=== PATIENT | male | born 1950 | race Caucasian/White ===

== ENCOUNTER 2019-03-13 06:28 | Day surgery (SDC) | payer MEDICARE ==
[~2019-03-13] VITALS: Ht 174 cm; Wt 86.2 kg
[~2019-03-13 06:28] MED LIST: ASCO500T8 PO; ASPI-515 PO; ASPI-650 PO; CALC1CAP8 PO; CARB15DR3 EACHEYE; CHOL100012 PO; EPIN1AMP IM; GABA300C10 PO; MULT-658 PO; NAPR220C2 PO; OXYC10TA72 PO; OXYC5CAP2 PO; PROP10DR2 EACHEYE; SIMV20TA3 PO; TAMS-11 PO; VITAMIN E PO
[2019-03-13] MEDS ORDERED: LACTATED RINGERS 1,000 ML IV SCH (06:56)
[2019-03-13] MEDS ORDERED: LIDOCAINE-MPF 1%, 2ML INFIL ONE (07:00)
[2019-03-13 07:05] VITALS: BP 157/91
[2019-03-13] MEDS ORDERED: BUPIVACAINE/PF 0.5% ONE (07:52)
[2019-03-13] MEDS ORDERED: EPINEPHRINE 1 MG/ML, 1ML ONE (07:52)
[2019-03-13] MEDS ORDERED: MIDAZOLAM 1 MG/ML, 2ML ONE (07:54)
[2019-03-13] MEDS ORDERED: PROPOFOL 50 ML ONE (07:54)
[2019-03-13] MEDS ORDERED: FENTANYL PF 250 MCG/5ML ONE (07:54)
[2019-03-13] MEDS ORDERED: CEFAZOLIN 1,000 MG ONE (08:06)
[2019-03-13] MEDS ORDERED: DEXAMETHASONE 4 MG/ML, 1ML ONE (08:19)
[2019-03-13] MEDS ORDERED: ONDANSETRON 2MG/ML, 2ML ONE (08:19)
[2019-03-13] MEDS ORDERED: DIPHENHYDRAMINE 50 MG/ML, 1ML IM PRN (08:30)
[2019-03-13] MEDS ORDERED: ONDANSETRON ODT 8 MG PO PRN (08:30)
[2019-03-13] MEDS ORDERED: METOPROLOL 1 MG/ML, 5ML IV PRN (08:30)
[2019-03-13] MEDS ORDERED: MIDAZOLAM 1 MG/ML, 2ML IV PRN (08:30)
[2019-03-13] MEDS ORDERED: EPHEDRINE 50 MG/ML, 1ML IM PRN (08:30)
[2019-03-13] MEDS ORDERED: ACETAMINOPHEN 325 MG TABLET PO PRN (08:30)
[2019-03-13] MEDS ORDERED: FENTANYL PF 100 MCG/2ML IV PRN (08:30)
[2019-03-13] MEDS ORDERED: ONDANSETRON 2MG/ML, 2ML IV PRN (08:30)
[2019-03-13] MEDS ORDERED: DIAZEPAM 5 MG/ML, 2ML IVPush PRN (08:30)
[2019-03-13] MEDS ORDERED: EPHEDRINE 50 MG/ML, 1ML IVPush PRN (08:30)
[2019-03-13] MEDS ORDERED: MORPHINE SULFATE 4 MG/ML, 1ML IVPush PRN (08:30)
[2019-03-13] MEDS ORDERED: PROMETHAZINE 25 MG/ML, 1ML IV PRN (08:30)
[2019-03-13] MEDS ORDERED: OXYcodone 5 MG/5 ML ORAL.SOL UDC PO PRN (08:30)
[2019-03-13] MEDS ORDERED: hydrALAzine 20 MG/ML, 1ML IV PRN (08:30)
[2019-03-13] MEDS ORDERED: ACETAMINOPHEN 650 MG/20.3 ML UDC ONE (08:58)
== END 2019-03-13 10:30 | disposition home or self-care (01) ==
LOC: OUT 06:28
PROVIDERS: ATTEND Orthopaedic Surgery
DX: G56.01 Carpal tunnel syndrome, right upper limb (principal); Z88.0 Allergy status to penicillin
CPT/HCPCS: 29848; 93005; J0171; J0690; J1100; J2250; J2405; J2704; J3010; J7120

== ENCOUNTER 2019-04-03 05:44 | Day surgery (SDC) | payer MEDICARE ==
[~2019-04-03] VITALS: Ht 172.7 cm; Wt 86.0 kg
[~2019-04-03 05:44] MED LIST changes: +SIMV20TA19 PO; -SIMV20TA3 PO
[2019-04-03 06:14] VITALS: BP 139/90
[2019-04-03] MEDS ORDERED: LACTATED RINGERS 1,000 ML IV SCH (06:18)
[2019-04-03] MEDS ORDERED: LIDOCAINE 1%, 20ML ONE (06:40)
[2019-04-03] MEDS ORDERED: EPINEPHRINE 1 MG/ML, 1ML ONE (06:40)
[2019-04-03] MEDS ORDERED: BUPIVACAINE/PF 0.5% ONE (06:40)
[2019-04-03] MEDS ORDERED: BACITRACIN 50,000 UNIT ONE (06:41)
[2019-04-03] MEDS ORDERED: MIDAZOLAM 1 MG/ML, 2ML ONE (07:00)
[2019-04-03] MEDS ORDERED: FENTANYL PF 100 MCG/2ML ONE (07:02)
[2019-04-03] MEDS ORDERED: ONDANSETRON 2MG/ML, 2ML ONE (07:15)
[2019-04-03] MEDS ORDERED: GLYCOPYRROLATE 0.2MG/1ML, 5ML ONE (07:15)
[2019-04-03] MEDS ORDERED: PROPOFOL 10 MG/ML, 20ML ONE (07:15)
[2019-04-03] MEDS ORDERED: CEFAZOLIN 1,000 MG ONE (07:15)
[2019-04-03] MEDS ORDERED: ONDANSETRON 2MG/ML, 2ML IV PRN (07:30)
[2019-04-03] MEDS ORDERED: ACETAMINOPHEN 325 MG TABLET PO PRN (07:30)
[2019-04-03] MEDS ORDERED: KETOROLAC 30 MG/1 ML IV PRN (07:30)
[2019-04-03] MEDS ORDERED: FENTANYL PF 100 MCG/2ML IV PRN (07:30)
== END 2019-04-03 08:45 | disposition home or self-care (01) ==
LOC: OUT 05:44
PROVIDERS: ATTEND Orthopaedic Surgery
DX: G56.02 Carpal tunnel syndrome, left upper limb (principal); M46.90 Unspecified inflammatory spondylopathy, site unspecified; Z79.899 Other long term (current) drug therapy; Z96.643 Presence of artificial hip joint, bilateral; Z88.0 Allergy status to penicillin; Z91.030 Bee allergy status
CPT/HCPCS: 29848; J0171; J0690; J2250; J2405; J2704; J3010; J7120

== ENCOUNTER 2019-07-16 22:15 | Inpatient (IN) | payer MEDICARE ==
[~2019-07-16] VITALS: Ht 167.6 cm; Wt 81.5 kg
--- NOTE | 2019-07-16 22:47 | NUR ---
ULTRASOUND AT BEDSIDE. IV KIT LEFT AT BEDSIDE. Addendum: 07/16/19 at 2248 by [email or web address] PLAN OF CARE DISCUSSED WITH PATIENT, AWAITING ULTRASOUND EXAM BEFORE PERFORMING IV AND LAB DRAW.
[2019-07-16] MEDS ORDERED: ONDANSETRON 2MG/ML, 2ML ONE (22:53)
[2019-07-16] MEDS ORDERED: KETOROLAC 30 MG/1 ML ONE (22:53)
[2019-07-16] MEDS ORDERED: MORPHINE SULFATE 4 MG/ML, 1ML ONE (22:53)
[2019-07-16] MEDS ORDERED: SODIUM CHLORIDE FLUSH 10ML SYR IVF ONE (23:00)
[2019-07-16] MEDS ORDERED: ONDANSETRON 2MG/ML, 2ML IVPush ONE (23:00)
[2019-07-16] MEDS ORDERED: SODIUM CHLORIDE 0.9% 1,000ML IVBOLUS ONE (23:00)
[2019-07-16] MEDS ORDERED: KETOROLAC 30 MG/1 ML IVPush ONE (23:00)
[2019-07-16] MEDS ORDERED: MORPHINE SULFATE 4 MG/ML, 1ML IVPush PRN (23:00)
--- NOTE | 2019-07-16 23:12 | NUR ---
task rn: Placed piv in pt. Pt tolerated well. pt has no other needs. call light in reach
--- NOTE | 2019-07-16 23:22 | NUR ---
IV STARTED, LABS DRAWN AND SENT. PT MEDICATED PER MAR. DENIES ANY NEEDS OR CONCERNS AT THIS TIME. CALL LIGHT IN REACH.
[2019-07-16 23:31] LABS: BASOPHILS # (AUTO) 0.03 x10^3/uL (0-0.1); BASOPHILS % (AUTO) 0 % (0-1); EOSINOPHILS # (AUTO) 0.02 x10^3/uL (0-0.4); EOSINOPHILS % (AUTO) 0 % (1-7); LYMPHOCYTES # (AUTO) 0.79 x10^3/uL (1-3.4); LYMPHOCYTES % (AUTO) 8 % (22-44); MD NO; MEAN CORPUSCULAR HEMOGLOBIN 30.4 pg (27.5-34.5); MEAN CORPUSCULAR HGB CONC 33.2 g/dL (33.2-36.2); MEAN CORPUSCULAR VOLUME 91.5 fL (81-97); MEAN PLATELET VOLUME 6.8 fL (7.4-10.4); MONOCYTES # (AUTO) 0.49 x10^3/uL (0.2-0.8); MONOCYTES % (AUTO) 5 % (2-9); NEUTROPHILS # (AUTO) 8.33 x10^3/uL (1.8-6.8); NEUTROPHILS % (AUTO) 86 % (42-75); PLATELET COUNT 169 x10^3/uL (130-400); RED BLOOD COUNT 4.69 x10^6/uL (4.38-5.82); RED CELL DISTRIBUTION WIDTH 14.5 % (9.4-14.8)
--- NOTE | 2019-07-16 23:40 | NUR ---
REPORT RECEIVED FROM KANG QUESADA. PT UPDATED ON POC, CALL LIGHT WITHIN REACH, ALL SAFETY MEASURES IN PLACE.
[2019-07-16] MEDS ORDERED: CIPROFLOXACIN/PMX 400MG/200ML 200 ML ONE (23:54)
[2019-07-17] MEDS ORDERED: CIPROFLOXACIN/PMX 400MG/200ML 200 ML IV ONE
--- NOTE | 2019-07-17 00:09 | NUR ---
PT UP TO BATHROOM WITH STEADY GAIT. PT RECONNECTED TO MONITORING, PT PLACED BACK ON 1L NC TO MAINTAIN OXYGEN SATURATION. FAMILY AT FOR SUPPORT, ALL SAFETY MEASURES IN PLACE.
[2019-07-17 00:21] LABS: MICROSCOPIC AUTO
[2019-07-17 00:36] LABS: ALBUMIN 3.5 g/dL (3.4-5.0); ANION GAP 6 mmol/L (5-15); CHLORIDE 109 mmol/L (98-107)
[2019-07-17 00:41] LABS: ALANINE AMINOTRANSFERASE 17 U/L (12-78); ALKALINE PHOSPHATASE 77 U/L (45-117); BILIRUBIN,TOTAL 0.9 mg/dL (0.2-1.0); CREATININE 1.05 mg/dL (0.7-1.3); TOTAL PROTEIN 7.1 g/dL (6.4-8.2)
[2019-07-17 01:57] VITALS: BP 109/71
[2019-07-17] MEDS ORDERED: morphine SULFATE 10 MG/ML, 1ML IVPush PRN (02:00)
[2019-07-17] MEDS ORDERED: ONDANSETRON 2MG/ML, 2ML IVPush PRN (02:00)
[2019-07-17] MEDS ORDERED: hydrALAzine 20 MG/ML, 1ML IVPush PRN (02:00)
[2019-07-17] MEDS ORDERED: KETOROLAC 30 MG/1 ML IV PRN (02:00)
[2019-07-17 07:34] VITALS: BP 103/64
[2019-07-17] MEDS: SENNA/DOCUSATE TABLET PO SCH (07:48)
[2019-07-17] MEDS: ACETAMINOPHEN 325 MG TABLET PO PRN (10:34)
[2019-07-17] MEDS ORDERED: CIPROFLOXACIN/PMX 400MG/200ML 200 ML IV SCH (11:00)
[2019-07-17 13:31] VITALS: BP 95/56
[2019-07-17 16:00] VITALS: BP 100/65
[2019-07-17] MEDS ORDERED: DOXYCYCLINE 100 MG in DEXTROSE 5% 250 ML IV SCH (17:00)
[2019-07-17 18:58] VITALS: BP 113/71
[2019-07-17] MEDS: CIPROFLOXACIN 750 MG TABLET PO SCH (23:24)
[2019-07-18 00:51] VITALS: BP 109/69
[2019-07-18 06:13] LABS: BASOPHILS # (AUTO) 0.01 x10^3/uL (0-0.1); BASOPHILS % (AUTO) 0 % (0-1); EOSINOPHILS # (AUTO) 0.02 x10^3/uL (0-0.4); EOSINOPHILS % (AUTO) 0 % (1-7); LYMPHOCYTES # (AUTO) 0.71 x10^3/uL (1-3.4); LYMPHOCYTES % (AUTO) 6 % (22-44); MD NO; MEAN CORPUSCULAR HEMOGLOBIN 30.3 pg (27.5-34.5); MEAN CORPUSCULAR HGB CONC 32.7 g/dL (33.2-36.2); MEAN CORPUSCULAR VOLUME 92.7 fL (81-97); MEAN PLATELET VOLUME 6.8 fL (7.4-10.4); MONOCYTES # (AUTO) 0.48 x10^3/uL (0.2-0.8); MONOCYTES % (AUTO) 4 % (2-9); NEUTROPHILS # (AUTO) 10.36 x10^3/uL (1.8-6.8); NEUTROPHILS % (AUTO) 90 % (42-75); PLATELET COUNT 132 x10^3/uL (130-400); RED BLOOD COUNT 4.26 x10^6/uL (4.38-5.82); RED CELL DISTRIBUTION WIDTH 14.3 % (9.4-14.8)
[2019-07-18 06:24] LABS: ANION GAP 4 mmol/L (5-15); CALCIUM 8.5 mg/dL (8.5-10.1); CHLORIDE 108 mmol/L (98-107)
[2019-07-18 06:28] LABS: CREATININE 1.12 mg/dL (0.7-1.3)
[2019-07-18 07:02] VITALS: BP 106/63
[2019-07-18] MEDS: CIPROFLOXACIN 750 MG TABLET PO SCH ×2 (09:50→21:24)
[2019-07-18] MEDS: SENNA/DOCUSATE TABLET PO SCH (09:50)
[2019-07-18] MEDS: DOXYCYCLINE 100MG TABLET PO SCH ×2 (09:50→21:24)
[2019-07-18] MEDS ORDERED: SODIUM CHLORIDE 0.9%, 500ML IVBOLUS ONE (11:00)
[2019-07-18] MEDS ORDERED: OMNIPAQUE 350 MG/ML, 100ML BOTTLE ONE (12:01)
[2019-07-18 13:39] VITALS: BP 120/77
[2019-07-18] MEDS: ACETAMINOPHEN 325 MG TABLET PO PRN (15:49)
[2019-07-18 19:25] VITALS: BP 109/73
[2019-07-19 01:47] VITALS: BP 122/76
[2019-07-19 06:08] LABS: BASOPHILS # (AUTO) 0.01 x10^3/uL (0-0.1); BASOPHILS % (AUTO) 0 % (0-1); EOSINOPHILS # (AUTO) 0.12 x10^3/uL (0-0.4); EOSINOPHILS % (AUTO) 2 % (1-7); LYMPHOCYTES # (AUTO) 0.73 x10^3/uL (1-3.4); LYMPHOCYTES % (AUTO) 10 % (22-44); MD NO; MEAN CORPUSCULAR HGB CONC 32.3 g/dL (33.2-36.2); MEAN CORPUSCULAR VOLUME 92.8 fL (81-97); MEAN PLATELET VOLUME 7.3 fL (7.4-10.4); MONOCYTES # (AUTO) 0.35 x10^3/uL (0.2-0.8); MONOCYTES % (AUTO) 5 % (2-9); NEUTROPHILS # (AUTO) 5.83 x10^3/uL (1.8-6.8); NEUTROPHILS % (AUTO) 83 % (42-75); PLATELET COUNT 127 x10^3/uL (130-400); RED BLOOD COUNT 4.12 x10^6/uL (4.38-5.82); RED CELL DISTRIBUTION WIDTH 14.7 % (9.4-14.8)
[2019-07-19 06:10] LABS: ANION GAP 9 mmol/L (5-15); CALCIUM 8.3 mg/dL (8.5-10.1); CHLORIDE 108 mmol/L (98-107)
[2019-07-19 06:37] VITALS: BP 121/81
[2019-07-19] MEDS: CIPROFLOXACIN 750 MG TABLET PO SCH ×2 (08:19→21:21)
[2019-07-19] MEDS: SENNA/DOCUSATE TABLET PO SCH (08:20)
[2019-07-19] MEDS: DOXYCYCLINE 100MG TABLET PO SCH ×2 (08:20→21:21)
[2019-07-19 13:50] VITALS: BP 123/83
[2019-07-19 20:24] VITALS: BP 130/83
[2019-07-20 01:01] VITALS: BP 119/78
[2019-07-20 06:17] LABS: MEAN CORPUSCULAR HEMOGLOBIN 29.9 pg (27.5-34.5); MEAN CORPUSCULAR HGB CONC 32.3 g/dL (33.2-36.2); MEAN CORPUSCULAR VOLUME 92.8 fL (81-97); MEAN PLATELET VOLUME 6.9 fL (7.4-10.4); PLATELET COUNT 162 x10^3/uL (130-400); RED CELL DISTRIBUTION WIDTH 14.7 % (9.4-14.8)
[2019-07-20 06:32] VITALS: BP 168/80
[2019-07-20] MEDS ORDERED: DOXY100T PO (07:09)
[2019-07-20] MEDS ORDERED: CIPR750T PO (07:09)
[2019-07-20 07:15] VITALS: BP 122/81
[2019-07-20 08:06] LABS: BASOPHILS # (AUTO) 0.02 x10^3/uL (0-0.1); BASOPHILS % (AUTO) 0 % (0-1); EOSINOPHILS # (AUTO) 0.15 x10^3/uL (0-0.4); EOSINOPHILS % (AUTO) 3 % (1-7); LYMPHOCYTES # (AUTO) 0.97 x10^3/uL (1-3.4); LYMPHOCYTES % (AUTO) 18 % (22-44); MD NO; MONOCYTES # (AUTO) 0.48 x10^3/uL (0.2-0.8); MONOCYTES % (AUTO) 9 % (2-9); NEUTROPHILS # (AUTO) 3.77 x10^3/uL (1.8-6.8); NEUTROPHILS % (AUTO) 70 % (42-75)
[2019-07-20] MEDS: SENNA/DOCUSATE TABLET PO SCH (08:36)
[2019-07-20] MEDS: DOXYCYCLINE 100MG TABLET PO SCH (08:36)
[2019-07-20] MEDS: CIPROFLOXACIN 750 MG TABLET PO SCH (08:36)
== END 2019-07-20 10:16 | disposition home or self-care (01) | DRG 728 ==
LOC: ED 23:33 → EDIP 07-17 00:56 → 4NE 07-17 01:51 → 3N 07-17 16:07
PROVIDERS: ADMIT Family Medicine; ATTEND Internal Medicine
DX: N45.3 Epididymo-orchitis (principal); L03.311 Cellulitis of abdominal wall; F72 Severe intellectual disabilities; N30.91 Cystitis, unspecified with hematuria; E78.5 Hyperlipidemia, unspecified; B96.20 Unspecified Escherichia coli [E. coli] as the cause of diseases classified elsewhere; Z96.643 Presence of artificial hip joint, bilateral; Z80.1 Family history of malignant neoplasm of trachea, bronchus and lung; Z88.0 Allergy status to penicillin; Z79.899 Other long term (current) drug therapy; Z79.1 Long term (current) use of non-steroidal anti-inflammatories (NSAID); Z79.2 Long term (current) use of antibiotics; R73.9 Hyperglycemia, unspecified
CPT/HCPCS: 36415; 72191; 76870; 80048; 80053; 81001; 83036; 83605; 84145; 85025; 87040; 87077; 87086; 87186; 87491; 87591; G0378; J0744; J1885; J2405; J7060; Q9967; J2270; J7030; J7040